=== PATIENT | female | born 1960 | race African-American/Black ===

== ENCOUNTER 2019-06-07 08:05 | Observation (INO) | payer SELFPAY ==
[2019-06-07 08:43] LABS: #Eosinphils 0.7 thou/uL (0.0-0.7); #Lymphocytes 3.4 thou/uL (1.20-3.40); #Monocytes 0.6 thou/uL (0.11-0.59); #Neutrophils 3.6 thou/uL (1.40-6.50); %Basophils 0.4 % (0.0-1.0); %Eosinophils 8.4 % (0.0-10.0); %Lymphocytes 40.8 % (21.0-51.0); %Monocytes 7.5 % (0.0-10.0); %Neutrophils 42.9 % (42.0-75.0); Hemoglobin 12.6 g/dL (12.0-16.0); Mean Corpuscular Hemoglobin 30.7 pg (27.0-31.0); Mean Corpuscular Volume 90.3 fL (78.0-98.0); Mean Platelet Volume 8.5 fL (7.4-10.4); Platelet Count 239 thou/uL (130-400); RBC Distribution Width 12.3 % (11.5-14.5); White Blood Cell (WBC) Count 8.3 thou/uL (4.8-10.8)
--- NOTE | 2019-06-07 08:43 | RAD ---
Exam: Chest one view HISTORY:Chest pain Comparison: None FINDINGS: Cardiac silhouette: Normal Aorta: Unremarkable Pulmonary vessels: Normal Costophrenic angles: Clear LUNGS: No masses or consolidation. Pneumothorax: None Osseous abnormalities: None IMPRESSION: No acute cardiopulmonary process.
[2019-06-07] MEDS ORDERED: Aspirin Chewable 81 MG TAB ONE (08:57)
[2019-06-07 09:06] LABS: ALT (SGPT) 13 U/L (8-55); AST (SGOT) 18 U/L (5-34); Albumin 4.2 g/dL (3.5-5.0); Alkaline Phosphatase 85 U/L (40-110); Anion Gap 13 mmol/L (10-20); BUN (Urea Nitrogen) 15 mg/dL (9.8-20.1); Bilirubin, Total 0.7 mg/dL (0.2-1.2); Calc. Creatinine Clearance 0 mL/min (70-130); Calcium 9.2 mg/dL (7.8-10.44); Carbon Dioxide 26 mmol/L (22-29); Chloride 104 mmol/L (98-107); Estimated GFR-MDRD 84; Globulin 3.1 g/dL (2.4-3.5); Glucose 102 mg/dL (70-105); Potassium 3.6 mmol/L (3.5-5.1); Protein, Total 7.3 g/dL (6.0-8.3); Sodium 139 mmol/L (136-145)
[2019-06-07 09:27] LABS: CKMB 2.1 ng/mL (0-6.6)
[2019-06-07] MEDS ORDERED: Nitroglycerin 0.4 MG TAB (25 Tab Bottle) PO PRN (10:18)
[2019-06-07 13:26] LABS: Troponin I 0.047 ng/mL (< 0.028)
[2019-06-07 14:00] VITALS: BMI 40.4
[2019-06-07] MEDS ORDERED: Dextrose 5% in Water 1,000 ML IV PRN (14:44)
[2019-06-07] MEDS ORDERED: HumaLOG 300 UNITS/3 ML VIAL SC PRN (14:44)
[2019-06-07] MEDS ORDERED: Dextrose 50% Abboject 50 ML SYRINGE SLOW IVP PRN (14:44)
--- NOTE | 2019-06-07 15:12 | HP ---
PRIMARY CARE PROVIDER: [facility]. CHIEF COMPLAINT: Chest pain. HISTORY OF PRESENT ILLNESS: Ms. Ferrari is a pleasant 58-year-old lady, who was seen at [facility] on June 07, 2019. She reports that over the last 2 weeks she has been having chest pain. The pain is across her chest, pressure like, radiating to her left arm, 9/10 at its worst. The patient reports that it is worse when she lies flat and improved when she sits up. She also reports nausea and reports that she vomited multiple times over the last couple of weeks. The patient was reportedly drinking alcohol on a daily basis. She quit daily alcohol use two weeks ago to see if it improved the symptoms. She reports that the symptoms persisted. REVIEW OF SYSTEMS: All systems were reviewed and found to be negative except for the pertinent positives mentioned above. PAST MEDICAL HISTORY: Dyslipidemia, hypertension, and diabetes mellitus type 2. SURGICAL HISTORY: Hysterectomy. PSYCHIATRIC HISTORY: Depression and anxiety. ALLERGIES: NO KNOWN DRUG ALLERGIES. CURRENT MEDICATIONS: 1. Metformin 500 mg 2 times a day. 2. Lexapro 20 mg daily. 3. Chlorthalidone 25 mg 2 times a day. 4. Lipitor 20 mg at bedtime. 5. Atenolol 25 mg daily. 6. Amlodipine 10 mg daily. FAMILY HISTORY: Significant for heart disease in her maternal grandmother, maternal uncle, and maternal aunt. SOCIAL HISTORY: Negative times three. PHYSICAL EXAMINATION: GENERAL: On examination, Ms. Ferrari is awake and alert, not in acute distress. VITAL SIGNS: She is morbidly obese, with a BMI of 40.4. Blood pressure is 154/ 83, pulse 68, respiratory rate 16, and oxygen saturation 95% on room air. She is afebrile. EYES: No scleral icterus, no conjunctival pallor. ENT: Moist mucosal membranes. No oropharyngeal erythema or exudates. NECK: Supple, nontender, trachea is midline. RESPIRATORY: Accessory muscles of breathing are not active. Chest wall movements are symmetric bilaterally. Lungs are clear to auscultation without wheeze, rhonchi, or crepitations. CARDIOVASCULAR: S1 and S2 are heard, regular. Peripheral pulses palpable. ABDOMEN: Soft, nontender, bowel sounds are heard. NEUROLOGIC: Cranial nerves 2 through 12 are intact. MUSCULOSKELETAL: Power is 5/5 in all 4 extremities. SKIN: No rashes or subcutaneous nodules. LYMPHATIC: No cervical lymphadenopathy. PSYCHIATRIC: Normal mood, normal affect, the patient is oriented to person, place, and time. LABORATORY DATA: Ms. Ferrari's labs and investigations were reviewed. I reviewed her electrocardiogram, which shows normal sinus rhythm, no ST changes to suggest an acute coronary syndrome. I also reviewed her chest x-ray, which does not show any pulmonary infiltrates. She has normal white count, normal hemoglobin, normal platelet count, normal comprehensive metabolic profile and indeterminate troponin I of 0.047, trending up from 0.040 earlier. ASSESSMENT AND PLAN: Ms. Ferrari is a pleasant 58-year-old lady, who was seen at [facility] on June 07, 2019. Her problem list includes: 1. Chest pain: Ms. Ferrari will be admitted to the hospital for further workup. She has had two indeterminate troponins. She will be monitored on telemetry. We will order stress test. Given the nature of pain being worse with lying down and improved with sitting up, we will order a 2D echocardiogram to evaluate for pericarditis or pericardial effusion. There are no electrocardiographic changes of pericarditis on the EKG. 2. Dyslipidemia: We will continue statin. 3. Diabetes mellitus type 2: We will start her on Accu-Cheks and insulin sliding scale, we will continue metformin. 4. Hypertension: Resume home medications, monitor vital signs and titrate antihypertensives as needed. Many thanks for allowing me to participate in your patient's care. Please feel free to contact me with any questions or concerns. LEVEL OF RISK: High. LEVEL OF COMPLEXITY: High. Job ID: [id number] MTDD
[2019-06-07 15:46] LABS: Troponin I 0.059 ng/mL (< 0.028)
[2019-06-07] MEDS ORDERED: hydrALAZINE 20 MG/ML VIAL SLOW IVP PRN (16:07)
[2019-06-07] MEDS: metFORMIN 500 MG TAB PO SCH (21:28)
[2019-06-07] MEDS: Atorvastatin Calcium 20 MG TAB PO SCH (21:28)
[2019-06-07] MEDS: Chlorthalidone 25 MG TAB PO SCH (21:28)
[2019-06-07] MEDS: Atenolol 25 MG TAB PO SCH (21:31)
[2019-06-08] MEDS: Enoxaparin Sodium 40 MG/0.4 ML SYRINGE SC SCH (07:45)
[2019-06-08] MEDS: Aspirin 325 mg Enteric Coated Tablet PO SCH (08:59)
[2019-06-08] MEDS: Escitalopram Oxalate 20 mg Tablet PO SCH (08:59)
[2019-06-08] MEDS: Amlodipine 10 MG TAB PO SCH (08:59)
[2019-06-08] MEDS: Chlorthalidone 25 MG TAB PO SCH ×2 (08:59→20:53)
[2019-06-08] MEDS: metFORMIN 500 MG TAB PO SCH ×2 (09:00→20:53)
[2019-06-08] MEDS ORDERED: Regadenoson 0.4 MG/5 ML SYRINGE ONE (15:28)
--- NOTE | 2019-06-08 16:22 | CON ---
DATE OF CONSULTATION: 06/08/2019 REASON FOR CONSULTATION: Chest pain. HISTORY OF PRESENT ILLNESS: Ms. Ferrari is a very pleasant 58-year-old female, who comes to the hospital for chest pain. She noted episode of chest pain for the last 2 weeks across her chest at random times. It radiates to her left arm. She states that it is worse when she lies down on her back. It gets better when she sits back up. She has had nausea and vomiting multiple times in the last few weeks as well. She drinks about three glasses of wine everyday. She has not done any in the last 2 weeks to see if her symptoms would get better, but this does not change. Because of this, she decided to come in. She was admitted, and troponins were drawn, and they were in the indeterminate range at 0.04, 0.04, and 0.05. She underwent stress test, and this is still pending results. Currently, she is pain free. PAST MEDICAL HISTORY: 1. Hyperlipidemia. 2. Hypertension. 3. Type 2 diabetes. PAST SURGICAL HISTORY: Hysterectomy. ALLERGIES: NO KNOWN DRUG ALLERGIES. OUTPATIENT MEDICATIONS: 1. Metformin 500 mg b.i.d. 2. Lexapro 20 mg a day. 3. Chlorthalidone 25 mg twice a day. 4. Lipitor 20 mg q.h.s. 5. Atenolol 25 mg a day. 6. Amlodipine 10 mg a day. FAMILY HISTORY: Maternal grandmother, uncle, and maternal aunt, but none in her parents or siblings. REVIEW OF SYSTEMS: A 12-point review of systems was done and was all negative unless stated in the history of present illness. PHYSICAL EXAMINATION: VITAL SIGNS: Temperature 98.6, pulse 75, respiratory rate 20, saturating 97% on room air, and blood pressure 131/71. GENERAL: Awake, alert, oriented x3, in no distress. HEENT: Normocephalic and atraumatic. NECK: Supple. LUNGS: Clear. CARDIOVASCULAR: S1 and S2. No S3 or S4. No murmurs. ABDOMEN: Soft. Positive bowel sounds. EXTREMITIES: No edema. SKIN: Warm and dry. LABORATORY DATA: Laboratory work was reviewed. CBC unremarkable. CMP is unremarkable. Troponin was 0.04, 0.04, and then 0.05 with indeterminate range. Echocardiogram was reviewed, EF at 60% to 65%, grade 1 diastolic dysfunction, mildly dilated left atrium, mild MR, and mild TR. No regional wall motion abnormalities. ASSESSMENT: 1. Chest pain. 2. Type 2 diabetes. 3. Hypertension. PLAN: 1. Stress test is already scheduled, and I think she will have to be a two-day stress case given her weight. We will await the second half of the procedure for full results. If this is abnormal, we will plan on further risk stratification with heart catheterization, and otherwise, we will send her home with possible pericarditis as her symptoms are highly suspicious of pericarditis. Her EKG does not show any ST elevations suggestive of pericarditis; however, the positional chest pain would suggest this. 2. Further recommendations per results of stress test. Job ID: [id number]
--- NOTE | 2019-06-08 18:13 | PDOC.HOSPP ---
- Subjective Encounter Date: 06/08/19 Encounter Time: 18:11 Subjective: Pt seen for followup re: chest pain. Feels better. - Objective Vital Signs & Weight: Vital Signs (12 hours) Temp Pulse Resp BP Pulse Ox 06/08/19 15:32 98.6 F 75 20 131/71 97 06/08/19 13:00 77 19 144/63 H 98 06/08/19 07:58 97.7 F 78 20 145/78 H 98 Weight Weight 265 lb 9 oz I&O: 06/07/19 06/08/19 06/09/19 06:59 06:59 06:59 Intake Total 500 800 Output Total 400 Balance 100 800 Result Diagrams: 06/07/19 08:33 06/07/19 08:33 Additional Labs: Accuchecks 06/08/19 06/08/19 06/07/19 17:24 05:43 20:48 POC Glucose 123 H 115 H 119 H 06/07/19 17:21 POC Glucose 103 Labs and MARs reviewed by me EKG Reviewed by me: Yes (Tele: NSR) Hospitalist ROS - Review of Systems Cardiovascular: reports: chest pain. denies: palpitations, orthopnea, paroxysmal noc. dyspnea, edema, light headedness Gastrointestinal: denies: nausea, vomiting, abdominal pain, diarrhea, constipation, melena, hematochezia - Medication Medications: Active Medications Generic Name Dose Route Start Last Admin Trade Name Freq PRN Reason Stop Dose Admin Amlodipine Besylate 10 mg 06/08/19 09:00 06/08/19 08:59 Norvasc PO 10 mg DAILY SULTANA Administration Aspirin 325 mg 06/08/19 09:00 06/08/19 08:59 Ecotrin PO 325 mg DAILY SULTANA Administration Atenolol 25 mg 06/08/19 09:00 06/07/19 21:31 Tenormin PO 25 mg DAILY SULTANA Administration Atorvastatin Calcium 20 mg 06/07/19 21:00 06/07/19 21:28 Lipitor PO 20 mg HS SULTANA Administration Chlorthalidone 25 mg 06/07/19 21:00 06/08/19 08:59 Hygroton PO 25 mg BID SULTANA Administration Enoxaparin Sodium 40 mg 06/08/19 09:00 06/08/19 07:45 Lovenox SC Not Given 09 [facility] Escitalopram Oxalate 20 mg 06/08/19 09:00 06/08/19 08:59 Lexapro PO 20 mg DAILY SULTANA Administration Hydralazine HCl 10 mg 06/07/19 16:07 06/07/19 16:25 Apresoline SLOW IVP 10 mg Q6H PRN Administration SBP Greater Than 170 Metformin HCl 500 mg 06/07/19 21:00 06/08/19 09:00 Glucophage PO Not Given BID SULTANA - Exam General - other findings: Morbid obesity Eye: anicteric sclera ENT: moist mucosa Neck: supple Heart: RRR, no rubs Respiratory: CTAB, no rales Gastrointestinal: soft, non-tender Extremities: no edema Skin: no rashes Musculoskeletal: no muscle wasting Psychiatric: normal affect, normal behavior Hosp A/P (1) Chest pain Code(s): R07.9 - CHEST PAIN, UNSPECIFIED Status: Acute (2) Dyslipidemia Code(s): E78.5 - HYPERLIPIDEMIA, UNSPECIFIED Status: Chronic (3) DM2 (diabetes mellitus, type 2) Status: Chronic (4) HTN (hypertension) Code(s): I10 - ESSENTIAL (PRIMARY) HYPERTENSION Status: Chronic - Plan Pt having stress test. Appreciate cardiology service input. Monitor vital signs, titrate antihypertensives as needed. Continue statin. Continue metformin, accuchecks, insuiln sliding scale.
[2019-06-08] MEDS: Atorvastatin Calcium 20 MG TAB PO SCH (20:53)
[2019-06-09] MEDS: Enoxaparin Sodium 40 MG/0.4 ML SYRINGE SC SCH (08:53)
[2019-06-09] MEDS: metFORMIN 500 MG TAB PO SCH (08:53)
[2019-06-09] MEDS: Escitalopram Oxalate 20 mg Tablet PO SCH (09:50)
[2019-06-09] MEDS: Aspirin 325 mg Enteric Coated Tablet PO SCH (09:51)
[2019-06-09] MEDS: Amlodipine 10 MG TAB PO SCH (09:54)
[2019-06-09] MEDS: Chlorthalidone 25 MG TAB PO SCH (09:54)
[2019-06-09] MEDS: Atenolol 25 MG TAB PO SCH (09:59)
--- NOTE | 2019-06-09 11:18 | NM ---
CARDIAC SPECT: HISTORY: A 58-year-old female with chest pain, hypertension and diabetes. TECHNIQUE: A myocardial perfusion scan was performed using the single isotope two day protocol with 33 millicuri es technetium 99m sestamibi injected intravenously for stress and rest images. Pharmacologic stress w ith Lexiscan was monitored and interpreted by Dr. Bruce. FINDINGS: There is a fixed defect in the inferolateral wall. No reversible defects are seen. GATED SPECT LVEF: 73% WALL MOTION EXAM: No significant wall motion abnormalities are seen. IMPRESSION: No evidence of reversible ischemia. POS: ALDA
[2019-06-09 11:44] VITALS: BP 155/70; TEMP 98.5
--- NOTE | 2019-06-10 04:25 | DIS ---
DATE OF ADMISSION: 06/07/2019 DATE OF DISCHARGE: 06/09/2019 PRIMARY CARE PROVIDER: [facility]. DISCHARGE DIAGNOSES: 1. Chest pain. 2. Chest pain most likely secondary to musculoskeletal etiology. CONDITION OF PATIENT ON THE DAY OF DISCHARGE: Stable. I assessed Ms. Ferrari on the day of discharge. She denies any chest pain or shortness of breath. Vital signs are stable. S1 and S2 are heard, regular. Lungs are clear to auscultation bilaterally. CONSULTATIONS DURING THIS HOSPITALIZATION: Cardiology, Dr. Munguia. DISCHARGE MEDICATIONS: No change was made to her pre-admission home medications as dictated in my history and physical note dated June 07, 2019. HOSPITAL COURSE: Ms. Ferrari is a pleasant 58-year-old lady, who was admitted to [facility] on June 07, 2019 for chest pain. She was seen by cardiology service. 2D echocardiogram showed normal left ventricular size, moderate concentric left ventricular hypertrophy, ejection fraction of 60% to 65%, grade 1/3 diastolic dysfunction and no regional wall motion abnormalities. She had mild mitral regurgitation and mild tricuspid regurgitation. She was seen by cardiology service. The concern was regarding coronary artery disease and pericarditis. However, her chest pain resolved. She had a nuclear stress test, which did not show any evidence of reversible ischemia. She also had pulmonary embolism ruled out with a negative D-dimer. She is being discharged home in a stable condition. POST ACUTE CARE FOLLOWUP: With primary care provider in 3 days. DIET: Diabetic and heart healthy. ACTIVITY: Ad halle. DISCHARGE DESTINATION: Home. Job ID: [id number]
== END 2019-06-09 14:58 | disposition home or self-care (01) ==
LOC: ERS 08:05 → ERHOLD 09:47 → 2SW 13:56
PROVIDERS: ADMIT Internal Medicine; ATTEND Internal Medicine
DX: R07.89 Other chest pain (principal); I10 Essential (primary) hypertension; E11.9 Type 2 diabetes mellitus without complications; E78.00 Pure hypercholesterolemia, unspecified; E78.5 Hyperlipidemia, unspecified; F41.9 Anxiety disorder, unspecified; F32.9 Major depressive disorder, single episode, unspecified; Z79.84 Long term (current) use of oral hypoglycemic drugs; Z79.899 Other long term (current) drug therapy
CPT/HCPCS: 36415; 36416; 71045; 78452; 80053; 82553; 84484; 85025; 85379; 93005; 93017; 93306; 96374; A9500; G0378; J0360; J2785